=== PATIENT | female | born 1975 | race Caucasian/White ===

== ENCOUNTER 2017-05-07 13:54 | Emergency (ER) | payer OTHER ==
[2017-05-07] MEDS ORDERED: NS 1,000 ML IV ONE (14:25)
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
[2017-05-07 14:36] LABS: % IMMATURE GRANULYOCYTES 0.3 % (0.0-1.1); ABSOLUTE IMMATURE GRANULOCYTES 0.02 10^3/uL (0.00-0.10); ADD DIFF? NO; ADD MORPH? NO; ADD SCAN? NO; ATYPICAL LYMPHOCYTE FLAG 10 (0-99); FRAGMENT RBC FLAG 0 (0-99); HEMATOCRIT 44.6 % (38.0-47.0); LEFT SHIFT FLG 0 (0-99); LIPEMIA HEMOLYSIS FLAG 80 (0-99); MEAN CELL HEMOGLOBIN 32.2 pg (27.9-34.1); MEAN CELL HEMOGLOBIN CONCENTR. 33.6 g/dL (32.4-36.7); MEAN CELL VOLUME 95.7 fL (81.5-99.8); MEAN PLATELET VOLUME 9.6 fL (8.7-11.7); PLATELET CLUMPS FLAG 10 (0-99); PLATELET COUNT 339 10^3/uL (150-400); RED BLOOD CELL COUNT 4.66 10^6/uL (4.18-5.33); RED CELL DISTRIBUTION WIDTH 11.2 % (11.5-15.2)
[2017-05-07 14:48] LABS: ANION GAP 14 mEq/L (8-16); CALCIUM 10.2 mg/dL (8.5-10.4); CARBON DIOXIDE 24 mEq/l (22-31); CHLORIDE 102 mEq/L (97-110); CREATININE 0.8 mg/dL (0.6-1.0); GLOMERULAR FILTRATION RATE > 60; GLUCOSE 89 mg/dL (70-100); POTASSIUM 4.3 mEq/L (3.5-5.2); SODIUM 140 mEq/L (134-144)
[2017-05-07] MEDS ORDERED: IOPAMIDOL (ISOVUE 370) 100 ML BTL IV ONE (15:02)
[2017-05-07 16:52] LABS: INR 0.89 (0.83-1.16); PROTIME(PATIENT) 11.9 SEC (12.0-15.0)
[2017-05-07 16:53] LABS: APTT 22.5 SEC (23.0-38.0)
[2017-05-07 17:11] LABS: TROPONIN I < 0.012 ng/mL (0.000-0.034)
[2017-05-07 17:30] VITALS: BP 134/81; PULSE 67; RESP 14; O2SAT 97
--- NOTE | 2017-05-07 17:44 | CPEKG ---
Heart Rate: 65 RR Interval: 923 P-R Interval: 148 QRSD Interval: 70 QT Interval: 416 QTC Interval: 433 P [place]: 68 QRS [place]: 41 T Wave [place]: 40 EKG Severity - BORDERLINE ECG - EKG Impression: SINUS RHYTHM EKG Impression: BORDERLINE T ABNORMALITIES, ANTERIOR LEADS Electronically Signed By: Jonathon Ceja 07-May-2017 22:59:16
[2017-05-07] MEDS ORDERED: RIVAROXABAN 15 MG TAB PO SCH (18:00)
--- NOTE | 2017-05-07 18:11 | EDPHY ---
H & P Time Seen by Provider: 05/07/17 14:14 Smoking Status: Never smoked Constitutional: Initial Vital Signs Temperature (C) 36.5 C 05/07/17 14:01 Heart Rate 76 05/07/17 14:01 Respiratory Rate 16 05/07/17 14:01 Blood Pressure 146/91 H 05/07/17 14:01 O2 Sat (%) 98 05/07/17 14:01 O2 Delivery Mode Room Air Allergies/Adverse Reactions: No Known Allergies Allergy (Unverified 05/07/17 14:04) Home Medications: Medication Instructions Recorded Brith Control 05/07/17 Rivaroxaban [Xarelto 15mg (*)] 15 mg PO BIDMEAL #41 tab 05/07/17 Rivaroxaban [Xarelto] 20 mg PO DAILY #30 tablet 05/07/17 Synthroid 05/07/17 Medical Decision Making - Diagnostics EKG Interpretation: EKG time is 5:42 p.m.; EKG shows a narrow complex normal sinus rhythm with a ventricular rate of 65. The [place], QRS, QT intervals are within normal limits. T- wave flattening in leads V2 and V3. There are no ST-T wave changes indicative of ischemic or injury pattern. No evidence of right heart strain. Interpreted by me. Imaging: Discussed imaging studies w/ fisher scallop Radiologist ED Course/Re-evaluation: Please see previous note same visit for further details. 5:00 p.m., results of her CT scan and diagnosis of sub segmental right lower lobe pulmonary embolism discussed with her. Her vital signs have been reviewed and are normal. Troponin is negative. BNP is normal. 5:15 p.m., discussed patient's workup and possible admission with on-call hospitalist with Dr. Ashly Agustin. Based on PESI score as well as Dr. Farnsworth evaluation, this patient will be discharged to home on Xarelto. She was given her 1st dose of Xarelto in the emergency department. Please see Dr. Agustin's note for further details. I am in agreement with this plan. The patient feels comfortable going home. She understands her medication dosing. She will follow up with her primary care physician Dr. Ramires in the next 2-3 days. Return to emergency department precautions were thoroughly reviewed with her. All of her questions were answered. She was discharged in good condition. Prescriptions for Xarelto were written by Dr. Agustin and provided to the patient. - Data Points Laboratory Results: Laboratory Results 05/07/17 14:17 05/07/17 14:17 Medications Given: Discontinued Medications Sodium Chloride (Ns) 1,000 mls @ 0 mls/hr IV ONCE ONE; Wide Open PRN Reason: Protocol Stop: 05/07/17 14:26 Last Admin: 05/07/17 14:49 Dose: 1,000 mls Rivaroxaban (Xarelto) 15 mg PO BIDMEAL [facility] Stop: 11/03/17 17:59 Last Admin: 05/07/17 17:58 Dose: 15 mg Departure - Departure Disposition: Home, Routine, Self-Care Clinical Impression: Pulmonary embolism Condition: Good Instructions: Deep Venous Thrombosis (ED) Additional Instructions: Read and follow provided instructions. Follow-up with your primary care physician Dr. Ramires, in 1-2 days for re- evaluation. Dr. Ramires will have access to our documentation here. She will manage your Xarelto prescription and ongoing care. Take medication as prescribed only. Return to the emergency department for worsening chest pain, shortness of breath , fever, worsening cough or other serious concerns. Referrals: Chrystal Ramires MD [Primary Care Provider] - As per Instructions Prescriptions: Rivaroxaban [Xarelto 15mg (*)] 15 mg PO BIDMEAL #41 tab Rivaroxaban [Xarelto] 20 mg PO DAILY #30 tablet
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
[2017-05-07 18:22] VITALS: TEMP 97.5
== END 2017-05-07 18:21 | disposition home or self-care (01) ==
DX: S89.92XA Unspecified injury of left lower leg, initial encounter (principal); E86.9 Volume depletion, unspecified; I26.99 Other pulmonary embolism without acute cor pulmonale; V49.59XA Passenger injured in collision with other motor vehicles in traffic accident, initial encounter; Y92.410 Unspecified street and highway as the place of occurrence of the external cause
CPT/HCPCS: Q9967

== ENCOUNTER 2017-05-09 01:36 | Emergency (ER) | payer OTHER ==
--- NOTE | 2017-05-09 01:48 | CPEKG ---
Heart Rate: 78 RR Interval: 769 P-R Interval: 140 QRSD Interval: 72 QT Interval: 384 QTC Interval: 438 P Rew: 65 QRS Rew: 43 T Wave Rew: 44 EKG Severity - BORDERLINE ECG - EKG Impression: SINUS RHYTHM EKG Impression: BORDERLINE T ABNORMALITIES, ANTERIOR LEADS EKG Impression: Unchanged from previous Electronically Signed By: Junior Fuentes 09-May-2017 01:57:34
[2017-05-09] MEDS ORDERED: NS 1,000 ML IV ONE ×2 (02:15→03:46)
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
[2017-05-09 02:29] LABS: % IMMATURE GRANULYOCYTES 0.3 % (0.0-1.1); ABSOLUTE IMMATURE GRANULOCYTES 0.02 10^3/uL (0.00-0.10); ADD DIFF? NO; ADD MORPH? NO; ADD SCAN? NO; ATYPICAL LYMPHOCYTE FLAG 20 (0-99); FRAGMENT RBC FLAG 0 (0-99); HEMATOCRIT 44.9 % (38.0-47.0); HEMOGLOBIN 15.2 g/dL (12.6-16.3); LEFT SHIFT FLG 0 (0-99); LIPEMIA HEMOLYSIS FLAG 90 (0-99); MEAN CELL HEMOGLOBIN 32.4 pg (27.9-34.1); MEAN CELL HEMOGLOBIN CONCENTR. 33.9 g/dL (32.4-36.7); MEAN CELL VOLUME 95.7 fL (81.5-99.8); MEAN PLATELET VOLUME 9.6 fL (8.7-11.7); PLATELET CLUMPS FLAG 10 (0-99); PLATELET COUNT 326 10^3/uL (150-400); RED BLOOD CELL COUNT 4.69 10^6/uL (4.18-5.33); RED CELL DISTRIBUTION WIDTH 11.2 % (11.5-15.2)
[2017-05-09 02:34] LABS: INR 1.78 (0.83-1.16); PROTIME(PATIENT) 20.8 SEC (12.0-15.0)
[2017-05-09 02:35] LABS: APTT 31.6 SEC (23.0-38.0)
[2017-05-09 02:40] LABS: ANION GAP 16 mEq/L (8-16); CALCIUM 9.8 mg/dL (8.5-10.4); CARBON DIOXIDE 23 mEq/l (22-31); CHLORIDE 102 mEq/L (97-110); CREATININE 0.9 mg/dL (0.6-1.0); GLOMERULAR FILTRATION RATE > 60; GLUCOSE 105 mg/dL (70-100); POTASSIUM 3.9 mEq/L (3.5-5.2); SODIUM 141 mEq/L (134-144)
[2017-05-09] MEDS ORDERED: HYDROmorphONE/DILAUDID 1 MG/ML SYR IVP ONE (02:49)
[2017-05-09 02:52] LABS: TROPONIN I < 0.012 ng/mL (0.000-0.034)
[2017-05-09] MEDS ORDERED: ONDANSETRON 4 MG/2 ML VIAL IVP ONE (03:39)
[2017-05-09] MEDS ORDERED: ONDANSETRON 4 MG/2 ML VIAL ONE (03:41)
[2017-05-09 03:58] VITALS: RESP 16
[2017-05-09 04:59] VITALS: BP 109/71; PULSE 70; TEMP 98.1; O2SAT 97
== END 2017-05-09 05:00 | disposition home or self-care (01) ==
DX: I26.99 Other pulmonary embolism without acute cor pulmonale (principal); E86.9 Volume depletion, unspecified
CPT/HCPCS: 96374; J1170; J2405

== ENCOUNTER → 2017-08-30 | Outpatient (CLI) | payer OTHER ==
[~2017-08-30] MED LIST: IOPAMIDOL (ISOVUE 370) 100 ML BTL IV ONE
== END ==
LOC: FIMAGING 13:52
PROVIDERS: ATTEND Family Medicine
DX: R07.9 Chest pain, unspecified (principal); Z86.711 Personal history of pulmonary embolism
CPT/HCPCS: Q9967

== ENCOUNTER → 2017-10-09 | Outpatient (CLI) | payer OTHER | LOC: FIMAGING 08:46 | PROVIDERS: ATTEND Family Medicine | DX: N63.20 Unspecified lump in the left breast, unspecified quadrant (principal) ==

== ENCOUNTER → 2018-06-13 | Outpatient (CLI) | payer OTHER | LOC: FIMAGING 12:47 | PROVIDERS: ATTEND Family Medicine | DX: N63.23 Unspecified lump in the left breast, lower outer quadrant (principal) ==

== ENCOUNTER → 2018-08-26 | Outpatient (CLI) | payer OTHER | LOC: FIMAGING 09:03 | PROVIDERS: ATTEND Family Medicine | DX: R10.11 Right upper quadrant pain (principal) | CPT/HCPCS: 78227; A9537 ==